=== PATIENT | female | born 1955 | race African-American/Black ===

== ENCOUNTER 2018-04-05 13:39 | Outpatient (CLI) | payer MEDICARE ==
[2018-04-05 15:48] LABS: #Eosinphils 0.2 thou/uL (0.0-0.7); #Lymphocytes 2.3 thou/uL (1.20-3.40); #Monocytes 0.5 thou/uL (0.11-0.59); #Neutrophils 5.1 thou/uL (1.40-6.50); %Basophils 0.6 % (0.0-1.0); %Eosinophils 2.1 % (0.0-10.0); %Lymphocytes 27.9 % (21.0-51.0); %Monocytes 6.7 % (0.0-10.0); %Neutrophils 62.7 % (42.0-75.0); Hemoglobin 12.1 g/dL (12.0-16.0); Mean Corpuscular HGB CONC 32.1 g/dL (32.0-36.0); Mean Corpuscular Hemoglobin 28.5 pg (27.0-31.0); Mean Corpuscular Volume 88.6 fL (78.0-98.0); Mean Platelet Volume 6.9 fL (7.4-10.4); Platelet Count 337 thou/uL (130-400); RBC Distribution Width 12.6 % (11.5-14.5); Red Blood Cell (RBC) Count 4.24 mill/uL (4.20-5.40); White Blood Cell (WBC) Count 8.1 thou/uL (4.8-10.8)
[2018-04-05 16:08] LABS: Anion Gap 16 mmol/L (10-20); BUN (Urea Nitrogen) 17 mg/dL (9.8-20.1); Calc. Creatinine Clearance 0 mL/min (70-130); Calcium 10.3 mg/dL (7.8-10.44); Carbon Dioxide 28 mmol/L (23-31); Chloride 100 mmol/L (98-107); Estimated GFR-MDRD 64; Glucose 98 mg/dL (80-115); Potassium 4.3 mmol/L (3.5-5.1); Sodium 140 mmol/L (136-145)
== END 2018-04-05 13:40 | disposition home or self-care (01) ==
LOC: LABBT 13:39
PROVIDERS: ATTEND Specialist
DX: Z01.818 Encounter for other preprocedural examination (principal); R92.8 Other abnormal and inconclusive findings on diagnostic imaging of breast
CPT/HCPCS: 80048; 85025; 93005; 93010

== ENCOUNTER 2018-04-28 12:27 | Outpatient (CLI) | payer MEDICARE ==
--- NOTE | 2018-04-28 15:42 | MRI ---
MRI OF THE BILATERAL BREASTS WITHOUT AND WITH CONTRAST: Comparison: Mammogram and ultrasound from [facility], 03-21-18. History: Abnormal mammogram and ultrasound performed at [facility], concerning for malignancy. Please evalu ate extent of disease. Technique: Multiplanar, multisequence MRI images were obtained of the bilateral breasts without and w ith IV contrast. Contrast enhanced reconstructions and 3D MIP reformats were generated on a [employer] orkstation. FINDINGS: Scattered fibroglandular breast tissue is present. Minimal background parenchymal enhancement is seen . There is a spiculated mass in the anterior inner right breast which is slightly subareolar in locatio n. This corresponds to the mammographic abnormality. This mass measures approximately 11 mm in size. Adjacent to this mass, there is non-mass like enhancement which extends from the nipple more posterio r within the breast. This area of non-mass like enhancement measures 7.8 x 5.5 x 4.6 cm in size. When compared to the mammograms, this non-mass like enhancement corresponds to area where the segmental c alcifications are seen on mammogram and likely represents DCIS. There is inversion of the left nipple and enhancement of the left nipple areolar complex. This is asymmetric when compared to the right. No abnormal enhancement is seen in the right breast. No spiculated mass is seen in the right breast. No axillary adenopathy is seen. No internal mamillary lymph nodes are identified. The visualized ante rior liver and osseous structures are unremarkable. IMPRESSION: 1. There is a spiculated mass in the left breast concerning for a breast cancer. There appears to be DCIS surrounding this mass, as mentioned above, involving the nipple areolar complex and is fairly ex tensive. The course runs through the area where the calcifications are seen in the left breast on juan mography. 2. BIRADS category 4 - official abnormality. A biopsy of the spiculated left breast mass is recommend ed. POS: OFF
== END 2018-04-28 12:28 | disposition home or self-care (01) ==
LOC: BICMRI 12:27
PROVIDERS: ATTEND Specialist
DX: R92.8 Other abnormal and inconclusive findings on diagnostic imaging of breast (principal); N63.20 Unspecified lump in the left breast, unspecified quadrant
CPT/HCPCS: C8908

== ENCOUNTER 2018-05-24 10:16 | Outpatient (CLI) | payer MEDICARE ==
[2018-05-24] MEDS ORDERED: Iopamidol 370 76% 100 ML VIAL ONE (11:19)
--- NOTE | 2018-05-24 13:03 | CT ---
CHEST AND ABDOMEN CT SCAN WITH IV CONTRAST: HISTORY: A 63-year-old female with a history of breast cancer, malignant neoplasm, upper inner quadrant, left female breast. FINDINGS: There are enumerable bone metastases involving the visualized bony skeleton. The most marked involve ment is the axial skeleton, including the thoracic and lumbar vertebrae, with large extensive lytic b one lesions, as well as the pelvis and sternum, with less marked areas of abnormality within the ribs , consistent with severe widespread bone metastasis. There is no evidence for pulmonary metastasis. There is no mediastinal mass or adenopathy. There are some oblique linear parenchymal changes in th e right lower lobe, posteriorly, probably representing some chronic change. No pleural effusion or p ericardial effusion. In the abdomen, there are extensive liver metastases, in the right and left lob es of the liver, up to 1.8 cm in diameter. No evidence for retroperitoneal adenopathy. The gallblad sim, pancreas, spleen, and adrenal glands are unremarkable. No evidence for renal calculus or acute obstruction. Severe small renal hypodensities, evidence for renal cysts. There is some scarring in the left breast. IMPRESSION: 1. Very extensive bone metastasis. 2. Extensive liver metastasis. 3. Other findings as above. POS: [facility]
--- NOTE | 2018-05-24 15:57 | NM ---
WHOLE BODY BONE SCAN: INDICATION: History of metastatic breast cancer. RADIOPHARMACEUTICAL: 32 mCi of Technetium 99m labeled MDP IV. FINDINGS: Whole body bone scan demonstrates multiple foci of abnormal radiotracer accumulation involving the ri bs, thoracolumbar spine, pelvis, and proximal right femur consistent with diffuse osseous metastatic disease. IMPRESSION: Diffuse osseous metastatic disease involving the spine, ribs, pelvis, and proximal right femur. Radi ographs of right femur recommended to evaluated extent of disease in this region. POS: [facility]
== END 2018-05-24 10:17 | disposition home or self-care (01) ==
LOC: CT 10:16
PROVIDERS: ATTEND Internal Medicine Hematology & Oncology
DX: Z01.818 Encounter for other preprocedural examination (principal); C50.212 Malignant neoplasm of upper-inner quadrant of left female breast; C78.7 Secondary malignant neoplasm of liver and intrahepatic bile duct; C79.51 Secondary malignant neoplasm of bone
CPT/HCPCS: 71260; 74160; 78306; 82565; A9503

== ENCOUNTER 2018-05-24 14:54 | Outpatient (CLI) | payer MEDICARE ==
[2018-05-24 16:28] LABS: #Basophils 0.1 thou/uL (0.0-0.2); #Eosinphils 0.1 thou/uL (0.0-0.7); #Lymphocytes 2.3 thou/uL (1.20-3.40); #Monocytes 0.8 thou/uL (0.11-0.59); #Neutrophils 3.9 thou/uL (1.40-6.50); %Basophils 1.3 % (0.0-1.0); %Eosinophils 1.9 % (0.0-10.0); %Lymphocytes 31.6 % (21.0-51.0); %Monocytes 10.9 % (0.0-10.0); %Neutrophils 54.3 % (42.0-75.0); Hemoglobin 12.1 g/dL (12.0-16.0); Mean Corpuscular HGB CONC 30.3 g/dL (32.0-36.0); Mean Corpuscular Hemoglobin 26.8 pg (27.0-31.0); Mean Corpuscular Volume 88.6 fL (78.0-98.0); Mean Platelet Volume 6.9 fL (7.4-10.4); Platelet Count 342 thou/uL (130-400); RBC Distribution Width 13.5 % (11.5-14.5); Red Blood Cell (RBC) Count 4.49 mill/uL (4.20-5.40); White Blood Cell (WBC) Count 7.3 thou/uL (4.8-10.8)
[2018-05-24 16:44] LABS: Anion Gap 12 mmol/L (10-20); BUN (Urea Nitrogen) 20 mg/dL (9.8-20.1); Calc. Creatinine Clearance 0 mL/min (70-130); Carbon Dioxide 30 mmol/L (23-31); Chloride 98 mmol/L (98-107); Estimated GFR-MDRD 70; Glucose 88 mg/dL (80-115); Potassium 3.7 mmol/L (3.5-5.1); Sodium 136 mmol/L (136-145)
[2018-05-24 16:54] LABS: Calcium 12.4 mg/dL (7.8-10.44)
== END 2018-05-24 14:55 | disposition home or self-care (01) ==
LOC: LABBT 14:54
PROVIDERS: ATTEND Specialist
DX: Z01.818 Encounter for other preprocedural examination (principal); C50.912 Malignant neoplasm of unspecified site of left female breast
CPT/HCPCS: 71260; 74160; 78306; 80048; 82565; 85025; 93005; A9503; 93010

== ENCOUNTER 2018-05-25 10:09 | Day surgery (SDC) | payer MEDICARE ==
[2018-05-24 14:46] VITALS: BMI 36.1
[2018-05-25] MEDS ORDERED: Ketorolac Tromethamine 30 MG/ML VIAL ONE (10:28)
[2018-05-25] MEDS ORDERED: CEFAZOLIN/Water 2 GM/20 ML SYRINGE ONE (10:28)
[2018-05-25] MEDS ORDERED: Fentanyl 100 MCG/2 ML VIAL ONE (11:46)
[2018-05-25] MEDS ORDERED: Midazolam HCl 2 mg/2 ml Vial ONE (11:46)
[2018-05-25] MEDS ORDERED: Ketamine 50 MG/ML VIAL ONE (11:46)
[2018-05-25] MEDS ORDERED: Propofol 500 MG/50 ML VIAL ONE (11:46)
[2018-05-25] MEDS ORDERED: Lidocaine 1% (PF) 30 ML VIAL ONE (12:03)
[2018-05-25] MEDS ORDERED: Bupivacaine/Epinephrine 0.25% 30 ML VIAL ONE (12:03)
--- NOTE | 2018-05-25 14:32 | RAD ---
PORTABLE UPRIGHT FRONTAL CHEST RADIOGRAPH: Date: 05-25-18 History: Evaluate chest following Mediport placement. FINDINGS: There is a right sided Port-a-cath via a right subclavian approach on the distal tip overlying the re gion of the cavoatrial junction. There is elevation of the right hemidiaphragm limiting assessment of the right lung base. There is no pneumothorax or pleural fluid and no focal consolidation or alveola r edema. There is multilevel degenerative change involving the thoracic spine with right lateral oste ophyte formation. IMPRESSION: Right sided Port-a-cath noted with no evidence for pneumothorax. POS: [facility]
--- NOTE | 2018-05-26 15:38 | OP ---
DATE OF OPERATION: 05/25/2018 PREOPERATIVE DIAGNOSIS: Metastatic breast cancer. POSTOPERATIVE DIAGNOSIS: Metastatic breast cancer. OPERATION PERFORMED: Placement of a right subclavian regular size, power-compatible MediPort. SURGEON: Alan Cervantes M.D. ANESTHESIA: Total intravenous anesthesia with local using 0.25% Marcaine with epinephrine. INDICATIONS: The patient is a 63-year-old black female. She is recently diagnosed with left breast cancer. Recent imaging studies seemed to indicate metastatic disease to her spine. She presents tod for MediPort placement for neoadjuvant chemotherapy administration. DESCRIPTION OF OPERATION: Informed consent was obtained. The patient was taken to the operating gisselle m where total intravenous anesthesia was obtained with the patient in supine position. Right pericla vicular area was prepped with ChloraPrep and draped in sterile fashion. Local anesthetic was infiltr ated and a large gauge needle was passed under the clavicle in the subclavian vein. Guidewire was pa ssed through the needle and fluoroscopically confirmed to enter the superior vena cava. Additional l ocal anesthetic was infiltrated and transverse incision was created based on needle insertion site. A subcutaneous pocket was dissected inferiorly. Introducer dilator was passed over the guidewire und er fluoroscopic guidance. The guidewire and dilator were removed, and the catheter was passed throug h the introducer. The tip of the catheter was positioned at the atriocaval junction and the catheter was trimmed to the appropriate length and secured to the locking hub of the MediPort. The port was then placed in the subcutaneous pocket where it was secured to the pectoral fascia with 2 interrupted sutures of 3-0 Prolene. The incision was then closed in layers with 3-0 and 4-0 Monocryl. Addition al local anesthetic was infiltrated. The port was cannulated with a Xavier needle and it aspirated bl ood freely and was flushed with heparinized saline. Dermabond was placed externally on the skin inci teri. There were no complications. Blood loss was negligible. The patient tolerated the procedure well and was taken to recovery room in stable condition. FINDINGS: The patient's anatomy was typical. A regular size port was placed uneventfully in the rig ht subclavian vein. There were no complications. Blood loss is negligible. A post-procedure chest x-ray documents good position of the port and catheter.
== END 2018-05-25 14:15 | disposition home or self-care (01) ==
LOC: SDC 10:09
PROVIDERS: ATTEND Specialist
PROC: 0JH63WZ Insertion of Totally Implantable Vascular Access Device into Chest Subcutaneous Tissue and Fascia, Percutaneous Approach (ICD-10-PCS; principal; 2018-05-25)
DX: C50.912 Malignant neoplasm of unspecified site of left female breast (principal); E11.9 Type 2 diabetes mellitus without complications; I10 Essential (primary) hypertension; M19.90 Unspecified osteoarthritis, unspecified site; Z17.0 Estrogen receptor positive status [ER+]; Z79.52 Long term (current) use of systemic steroids; Z79.899 Other long term (current) drug therapy
CPT/HCPCS: 36561; 71045; C1788; J0131; J1642; J1885; J2001; J2250; J2704; J3010

== ENCOUNTER 2018-05-26 12:02 | Outpatient (CLI) | payer MEDICARE ==
[~2018-05-26 12:02] MED LIST: Iopamidol 370 76% 100 ML VIAL ONE
--- NOTE | 2018-05-26 17:53 | CT ---
CT OF THE BRAIN WITHOUT AND WITH CONTRAST: 05/26/18 HISTORY: Breast cancer with osseous metastatic disease. COMPARISON: Bone scan 05/24/18. TECHNIQUE: Multiple contiguous axial images were obtained in a CT of the brain without and with contrast. FINDINGS: There is scattered abnormal foci of enhancement in the brain concerning for intracranial metastases. The largest is seen in the left basal ganglia measuring 11 mm in size. The second largest lesion is s een in the left frontal lobe near the falx measuring 8 mm in size. Other foci of abnormal enhancement are seen in the bilateral frontal lobe and the left parietal lobe. There is no evidence of hydrocephalus, intracranial hemorrhage, or extra-axial fluid collection. The calvarium and overlying soft tissues are unremarkable. The visualized paranasal sinuses and masto id air cells are well aerated. IMPRESSION: Multifocal abnormal areas of enhancement in the brain are likely secondary to intracranial metastatic disease. POS: [facility]
== END 2018-05-26 12:03 | disposition home or self-care (01) ==
LOC: ULT 12:02 → CT 12:03
PROVIDERS: ATTEND Internal Medicine Hematology & Oncology
DX: Z51.11 Encounter for antineoplastic chemotherapy (principal); C50.212 Malignant neoplasm of upper-inner quadrant of left female breast; C79.51 Secondary malignant neoplasm of bone; C78.7 Secondary malignant neoplasm of liver and intrahepatic bile duct; R90.89 Other abnormal findings on diagnostic imaging of central nervous system; I08.3 Combined rheumatic disorders of mitral, aortic and tricuspid valves; Z79.899 Other long term (current) drug therapy
CPT/HCPCS: 70470; 93306

== ENCOUNTER 2018-06-25 20:13 | Inpatient (IN) | payer MEDICARE ==
[~2018-06-25 20:13] MED LIST changes: +ISOVUE-370 76%-LOCM 1 ML ONE; -Iopamidol 370 76% 100 ML VIAL ONE
[2018-06-25] MEDS ORDERED: Acetaminophen 500 MG TAB ONE ×2 (20:50→21:17)
[2018-06-25] MEDS ORDERED: Cefepime 2 GM VIAL ONE (20:50)
--- NOTE | 2018-06-25 20:56 | RAD ---
CHEST ONE VIEW: Comparison: 05-25-18 History: Fever. Patient on chemotherapy. FINDINGS: Right sided metaport catheter, unchanged in position. Persistent elevation of the right hemidiaphragm . No consolidation or mass. No pneumothorax or osseous abnormality. IMPRESSION: No acute cardiopulmonary process. POS: [facility]
[2018-06-25 21:24] LABS: ALT (SGPT) 114 U/L (8-55); AST (SGOT) 212 U/L (5-34); Alkaline Phosphatase 450 U/L (40-150); Anion Gap 18 mmol/L (10-20); BUN (Urea Nitrogen) 34 mg/dL (9.8-20.1); Bilirubin, Total 1.9 mg/dL (0.2-1.2); CK (CPK) 249 U/L (29-168); Calc. Creatinine Clearance 0 mL/min (70-130); Calcium 8.6 mg/dL (7.8-10.44); Carbon Dioxide 23 mmol/L (23-31); Chloride 100 mmol/L (98-107); Estimated GFR-MDRD 53; Globulin 3.2 g/dL (2.4-3.5); Glucose 204 mg/dL (80-115); Lipase 30 U/L (8-78); Potassium 3.5 mmol/L (3.5-5.1); Protein, Total 6.2 g/dL (6.0-8.3); Sodium 137 mmol/L (136-145)
[2018-06-25 21:27] LABS: CKMB 0.4 ng/mL (0-6.6); Troponin I 0.037 ng/mL (< 0.028)
[2018-06-25 21:58] LABS: Anisocytosis SLIGHT = 6-15 cells (100X) (0-5/hpf); Band 1 % (5-11); Eosinophils 1 % (0-10); Hemoglobin 10.9 g/dL (12.0-16.0); Lymphocytes 79 % (21-51); MDiff Complete? YES; Mean Corpuscular HGB CONC 31.2 g/dL (32.0-36.0); Mean Corpuscular Hemoglobin 27.2 pg (27.0-31.0); Mean Corpuscular Volume 87.3 fL (78.0-98.0); Mean Platelet Volume 11.4 fL (7.4-10.4); Metamyelocyte 2 % (0-0); Monocytes 9 % (0-10); Myelocyte 2 % (0-0); Neutrophil 6 % (42-75); PLT Morphology Comment Appears Decreased; Platelet Count 104 thou/uL (130-400); RBC Distribution Width 16.8 % (11.5-14.5)
[2018-06-25] MEDS ORDERED: Ibuprofen 800 MG TAB ONE (22:42)
--- NOTE | 2018-06-25 23:08 | CT ---
CT ANGIOGRAM OF THE CHEST: Comparison: Chest CT 05-24-18 History: Metastatic breast cancer. Weakness. Technique: CT angiogram of the chest was performed in the axial plane. 3D reformatted images are subm itted for interpretation. FINDINGS: No mediastinal mass, lymphadenopathy, or hematoma. Heart size is within normal limits. No pericardial effusions. Visualized aorta is unremarkable. There is evidence of multifocal hepatic metastases. Extensive osseous metastases. Stable linear opacity in the superior segment of the right lower lobe compatible with scar. No consol idation or masses. No pleural effusion or pneumothorax. Small amount of secretions are suspected in t he proximal right central bronchus. Limited evaluation of the pulmonary arterial system to the level of lobar arteries due to timing of b olus. No evidence of PE to the level of the lobar arteries. IMPRESSION: 1. Extensive osseous and hepatic metastases. 2. Limited evaluation of the pulmonary arterial systems to the level of the lobar arteries. No fillin g defects to suggest thromboembolism. POS: [facility]
[2018-06-25 23:55] LABS: Troponin I 0.045 ng/mL (< 0.028)
[2018-06-26] MEDS ORDERED: Ondansetron PF 4 MG/2 ML Vial IVP PRN (00:44)
[2018-06-26 03:56] LABS: Hemoglobin 9.1 g/dL (12.0-16.0); Mean Corpuscular HGB CONC 30.9 g/dL (32.0-36.0); Mean Corpuscular Hemoglobin 26.9 pg (27.0-31.0); Mean Corpuscular Volume 86.9 fL (78.0-98.0); Mean Platelet Volume 11.4 fL (7.4-10.4); Platelet Count 97 thou/uL (130-400); RBC Distribution Width 16.7 % (11.5-14.5); White Blood Cell (WBC) Count 1.1 thou/uL (4.8-10.8)
[2018-06-26 03:56] LABS: Lactic Acid 2.7 mmol/L (0.5-2.2)
[2018-06-26 03:59] LABS: Anion Gap 14 mmol/L (10-20); BUN (Urea Nitrogen) 28 mg/dL (9.8-20.1); Calc. Creatinine Clearance 0 mL/min (70-130); Calcium 7.5 mg/dL (7.8-10.44); Carbon Dioxide 23 mmol/L (23-31); Chloride 107 mmol/L (98-107); Estimated GFR-MDRD 71; Glucose 181 mg/dL (80-115); Potassium 3.5 mmol/L (3.5-5.1); Sodium 140 mmol/L (136-145)
[2018-06-26 04:34] LABS: Anisocytosis SLIGHT = 6-15 cells (100X) (0-5/hpf); Band 1 % (5-11); Eosinophils 2 % (0-10); Lymphocytes 64 % (21-51); MDiff Complete? YES; Monocytes 22 % (0-10); Myelocyte 3 % (0-0); Neutrophil 7 % (42-75); PLT Morphology Comment Appears Decreased
[2018-06-26] MEDS ORDERED: Cefepime 2 GM VIAL ONE (04:43)
[2018-06-26] MEDS: Sodium Chloride 0.9% 1,000 ML IV SCH ×3 (08:01→20:43)
[2018-06-26] MEDS: Cefepime 2 GM in Sodium Chloride 0.9% 100 ML IVPB SCH ×3 (08:01→20:41)
[2018-06-26 08:57] LABS: Anion Gap 12 mmol/L (10-20); BUN (Urea Nitrogen) 27 mg/dL (9.8-20.1); Calc. Creatinine Clearance 0 mL/min (70-130); Calcium 7.4 mg/dL (7.8-10.44); Carbon Dioxide 24 mmol/L (23-31); Chloride 108 mmol/L (98-107); Estimated GFR-MDRD 79; Glucose 142 mg/dL (80-115); Potassium 3.3 mmol/L (3.5-5.1); Sodium 141 mmol/L (136-145)
--- NOTE | 2018-06-26 09:17 | HP ---
PRIMARY CARE PHYSICIAN: Kelvin Bay M.D. CODE STATUS: FULL CODE. TIME OF EVALUATION: 12:00 a.m. CHIEF COMPLAINT: Fever and generalized weakness. HISTORY OF PRESENT ILLNESS: This is a 63 years old female patient with past medical history of breast cancer with metastatic disease, who came to the hospital after having severe generalized weakness, the symptoms started since , associated with fever, no clear triggers, no alleviating factors, of note patient is receiving chemo, white count was 1.0, symptoms are severe. REVIEW OF SYSTEMS: Constitutional: The patient had fever, chills, generalized weakness. Respiratory: No cough, sputum production or shortness of breath. Cardiovascular: No chest pain or palpitations. Gastrointestinal: The patient has nausea, occasional vomiting. TELEPHONE LINEWORKER: No dizziness, headache or feeling lightheaded. Genitourinary: No burning with urination. Extremities: No leg swelling. All other systems were reviewed and negative except for the finding mentioned above. PAST MEDICAL HISTORY: The patient has a history of left breast cancer, hyperlipidemia, hypertension. FAMILY HISTORY: The patient denies any significant family history of mother or father. PSYCHIATRIC HISTORY: No previous psychiatric history. SOCIAL HISTORY: No alcohol, no drugs. No smoking history. Lives with family. KNOWN ALLERGIES: No known drug allergies. REPORTED MEDICATIONS: Hydrochlorothiazide, simvastatin, prochlorperazine, Namenda, cyclobenzaprine, nystatin, Zofran, Combigan, Lumigan. PHYSICAL EXAMINATION: VITAL SIGNS: On presentation, blood pressure 131/70, heart rate 125, respiratory rate was 32, temperature 100.5, oxygen saturation 95 on room air. PHYSICAL EXAMINATION: GENERAL APPEARANCE: The patient is alert, oriented, in mild distress due to symptoms. HEENT: Eyes, normal conjunctivae. Dry oral mucosa. Eyes, anicteric. NECK: No JVD. RESPIRATORY: Bilateral air entry. No rales, no wheezes. Symmetric expansion. CARDIOVASCULAR: The patient was tachycardic, normal rhythm. No murmurs, no gallop, no edema. ABDOMEN: Soft. Normal bowel sounds. MUSCULOSKELETAL: Baseline range of motion and strength. No tenderness. SKIN: Warm and intact. No pallor, no rash, no redness. Peripheral pulses are present. Capillary refill seems to be intact. NEUROLOGIC: No evidence of any new focal weakness. Baseline speech. Cranial nerves seem to be intact. PSYCHIATRIC: The patient is in good mood. No anxiety, oriented, optimal judgment. Chest x-ray was done. The patient has no acute cardiopulmonary process. CT angio of the chest was done. The patient has extensive ulcers and hepatic metastasis. Limited evaluation of the pulmonary arterial systems to the level of the lower arteries, no filling defect to suggest thromboembolism. LABORATORY DATA: The labs were reviewed. Her white count was 1.0, hemoglobin 10.9, MCV 87, platelet count 104. The patient has neutropenia. D-dimer 7.12. Chemistry: Sodium 137, potassium 3.5, chloride 100, carbon dioxide 23, anion gap of 18, BUN 34 on presentation with creatinine 1.23, this has improved after hydration. GFR 53; glucose 204; lactic acid 3.5, came down to 2.7 after initial treatment. Total bilirubin 1.9, AST 212, ALT 114, alkaline phosphatase 150. CK 249, troponin 0.045. Beta natriuretic peptide 33.4. Serum total protein 6.2, albumin 3.0, globulin 3.2, albumin-globulin ratio 0.9, lipase 30. ASSESSMENT AND PLAN: The patient will be placed in the hospital with the following medical problems. 1. Neutropenic fever, no evident source. The patient had chemotherapy recently. White count is 1.0. Neutrophils are very low. The patient has been started on broad-spectrum antibiotics. We will follow cultures, will adjust treatment as necessary . 2. Sepsis. The patient has neutropenia with fever and lactic acidosis. The patient has been started broad-spectrum antibiotics, hydration to keep , rest of treatment as above. 3. Metastatic breast cancer with metastasis to liver and the bone, Dr. Medina has been following this patient. We will consult Dr. Medina for help with her neutropenia for further recommendations. 4. Elevated D-dimer, likely secondary to cancer, no pulmonary embolism was found in the CT angiogram. 5. Normocytic anemia, likely secondary to chemotherapy, and due to cancer, we will defer to Hematology any further management. 6. Thrombocytopenia, likely secondary to chemo. Follow up with Hematology for further recommendations. 7. Dehydration with elevation of BUN and creatinine on presentation. Patient has received aggressive hydration for sepsis. Her creatinine has improved, it is in normal level now. 8. Lactic acidosis, secondary to underlying sepsis. Lactic acid has come down after initial approach. I will treat the underlying condition. 9. High LFTs, likely secondary to multiple metastases in the liver. We will monitor. Oncology following this problem. 10. Mild elevation in troponin. This is likely secondary to [id number] myocardial infarction, type 2. We will trend troponins and we will treat accordingly. 11. Deep venous thrombosis prophylaxis. MTDD
[2018-06-26] MEDS ORDERED: Enoxaparin Sodium 40 MG/0.4 ML SYRINGE ONE (10:05)
[2018-06-26 11:46] LABS: Bilirubin Small (Negative); Blood, Urine Large (Negative); Clarity CLOUDY (Clear); Glucose, Urine (Dipstick) Negative (Negative); Leukocyte Negative (Negative); Nitrite Negative (Negative); Protein, Urine (Dipstick) 100 mg/dL (Neg-Trace); Urobilinogen 0.2 mg/dL (0.2-1.0)
[2018-06-26 11:48] LABS: Squamous Epithelial 21-50 HPF (0-3)
[2018-06-26 11:53] LABS: Pathc Cast-AUWi Flag 4.07 (0-2.49); Yeast-AUWi Flag 91.8 (0-25.0)
[2018-06-26 12:06] LABS: Bacteria/HPF 1+ HPF (None Seen); Hyaline Casts/LPF 0-3 HYALINE CAST LPF (0-3 Hyaline); Manual Microscopic Reviewed? No Path Casts Seen; Other Casts/LPF 0-3 FINELY GRAN LPF (0-3 Hyaline); Renal Epithelial 0-3 HPF (0-3); Transitional Epithelial NONE SEEN HPF (0-3); Yeast-All Forms 1+ HPF (None Seen)
[2018-06-26 13:48] LABS: Hemoglobin 8.9 g/dL (12.0-16.0); Mean Corpuscular HGB CONC 30.3 g/dL (32.0-36.0); Mean Corpuscular Hemoglobin 26.3 pg (27.0-31.0); Mean Platelet Volume 10.4 fL (7.4-10.4); Platelet Count 98 thou/uL (130-400); RBC Distribution Width 16.7 % (11.5-14.5); Red Blood Cell (RBC) Count 3.39 mill/uL (4.20-5.40)
[2018-06-26 14:11] LABS: ALT (SGPT) 85 U/L (8-55); AST (SGOT) 141 U/L (5-34); Albumin 2.4 g/dL (3.4-4.8); Alkaline Phosphatase 332 U/L (40-150); Anion Gap 10 mmol/L (10-20); BUN (Urea Nitrogen) 23 mg/dL (9.8-20.1); Bilirubin, Total 1.1 mg/dL (0.2-1.2); Calc. Creatinine Clearance 0 mL/min (70-130); Calcium 7.6 mg/dL (7.8-10.44); Carbon Dioxide 25 mmol/L (23-31); Chloride 109 mmol/L (98-107); Estimated GFR-MDRD 87; Globulin 3.1 g/dL (2.4-3.5); Glucose 158 mg/dL (80-115); Potassium 3.2 mmol/L (3.5-5.1); Protein, Total 5.5 g/dL (6.0-8.3); Sodium 141 mmol/L (136-145)
--- NOTE | 2018-06-26 14:27 | CON ---
DATE OF CONSULTATION: 06/26/2018 DATE OF ADMISSION: 06/25/2018 HISTORY OF PRESENT ILLNESS: Ms. Tomas is a 63-year-old female with a history of metastatic ER posi tive, HER2 positive invasive ductal carcinoma. She was diagnosed within the last 6 weeks. On diagno sis, she was found to have brain and liver metastases as well as bone metastases. She was treated wi th whole-brain radiation, completed one week prior to . Four days later, she was brought in to start palliative chemotherapy and treatment with Taxotere, Perjeta, Herceptin. She was noted to have some mild elevation in her liver function tests last week, on the day of treatment. This was discussed with her family and the patient ultimately decided to get started with treatment. She rec eived a dose reduced Taxotere, plus Perjeta and Herceptin 5 days prior to this admission. After chem otherapy, she did get weaker. She had been week prior to starting the chemotherapy. She had lost 20 pounds on the radiation. She had some back pain, which has improved. For 3-4 days after chemothera py, she did have some diarrhea, although on the day that I discussed this with her, she thinks maybe it is improving. She did not notice any fever at home, but she did have fever when she came to the e mergency room. Her children brought her to the emergency room, because she had gotten progressively weaker and more fatigued. She was not eating or drinking very much and was noted to have pain in her mouth with sores, probably thrush. Because she could not swallow well and was having diarrhea, she was brought in. She was notably slightly hypotensive, although certainly this has improved. PAST MEDICAL HISTORY: 1. Recent diagnosis of metastatic breast cancer. 2. Hypertension. 3. Hyperlipidemia. CURRENT MEDICATIONS: 1. Tylenol p.r.n. 2. Cefepime 2 grams IV q.8 hours. 3. Lovenox 40 mg subcu daily. 4. Zofran 4 mg IV q.6 hours p.r.n. 5. Vancomycin 1 gram given on admission. ALLERGIES: No known drug allergies. SOCIAL HISTORY: She lives in town, and has a , who is quite supportive. Her daughter and son also are quite supportive. She denies tobacco or alcohol use. FAMILY HISTORY: Negative for malignancy and noncontributory. REVIEW OF SYSTEMS: Otherwise, 10-point review of systems is negative. Please see the history of pre sent illness. PHYSICAL EXAMINATION: VITAL SIGNS: Temperature 96.8, respirations 20, O2 saturation 97% on room air, blood pressure 121/68 , pulse 99. GENERAL: She is somewhat chronically ill-appearing, but in no acute distress and is able to give a g ood history. HEENT: Extraocular muscles are intact. Pupils equal, round, and reactive to light. She has no oral cavity lesions, sclerae are anicteric. Mouth, she does have white patches consistent with thrush. NECK: Supple, without lymphadenopathy. CARDIOVASCULAR: Regular rhythm, somewhat tachycardic, but in the 80s on my exam. LUNGS: Clear to auscultation. ABDOMEN: Hypoactive bowel sounds, obese, nontender, nondistended, no ascites noted. EXTREMITIES: No edema, clubbing, or cyanosis. LABORATORY DATA: White blood cell count 1.1, hemoglobin 9.1, platelets 97,000 with 7% neutrophils, 2 2% monocytes, 1% bands, 64% lymphocytes. Lactic acid 3.5. Sodium 137, potassium 3.5, chloride 100, CO2 of 23, BUN 34, creatinine 1.2, glucose 204, total bilirubin 1.9, this is slightly decreased from last week. AST 212, ALT 114, alkaline phosphatase 450, creatine kinase 249, albumin 3.0, total prote in 6.2, globulin 3.2, lipase 30. CT angiogram done on admission shows multiple hepatic metastases as well as osteo metastases. There is limited evaluation of the pulmonary arterial system, but no filling defects to suggest thromboembo lism. ASSESSMENT: Ms. Tomas is a 63-year-old female with: 1. Metastatic ER positive, HER2 positive invasive ductal carcinoma. 2. Liver and bone metastases contributing to liver function tests abnormalities. 3. Weakness and dehydration. 4. Diarrhea, secondary to chemotherapy, Herceptin and Perjeta. 5. Fever on admission, although currently she is afebrile. 6. Pancytopenia, secondary to chemotherapy and bone metastases. PLAN: 1. She is already on cefepime, we will continue vancomycin until her blood counts recover. 2. Follow liver function tests closely and avoid liver toxic agents. 3. I think the diarrhea has somewhat improved and certainly is related to treatment. Imodium p.r.n. , unless she shows signs of infection that is associated with the diarrhea. 4. IV fluids and hydration. 5. Hold blood pressure medications for now. 6. We will follow with you.
[2018-06-26 14:30] LABS: Anisocytosis SLIGHT = 6-15 cells (100X) (0-5/hpf); Band 10 % (5-11); Elliptocytes SLIGHT = 2-5 cells (100X) (0-1/hpf); Hypochromia SLIGHT = 6-15 cells (100X) (0-5/hpf); Lymphocytes 68 % (21-51); MDiff Complete? YES; Metamyelocyte 3 % (0-0); Monocytes 6 % (0-10); Myelocyte 1 % (0-0); Neutrophil 8 % (42-75); PLT Morphology Comment Appears Decreased; Poikilocytosis SLIGHT = 6-15 cells (100X) (0-5/hpf); Reactive Lymphocytes 4 % (0-10); Tear Drops SLIGHT = 2-5 cells (100X) (0-1/hpf)
[2018-06-26] MEDS: Enoxaparin Sodium 40 MG/0.4 ML SYRINGE SC SCH (14:45)
[2018-06-26] MEDS: Nystatin 500,000 UNITS/5 ML UDCUP SSW SCH ×2 (16:01→20:41)
[2018-06-27] MEDS: Sodium Chloride 0.9% 1,000 ML IV SCH ×2 (05:28→18:09)
[2018-06-27] MEDS: Cefepime 2 GM in Sodium Chloride 0.9% 100 ML IVPB SCH ×3 (05:29→21:39)
[2018-06-27 06:34] LABS: ALT (SGPT) 69 U/L (8-55); AST (SGOT) 120 U/L (5-34); Albumin 2.3 g/dL (3.4-4.8); Alkaline Phosphatase 298 U/L (40-150); Anion Gap 11 mmol/L (10-20); BUN (Urea Nitrogen) 16 mg/dL (9.8-20.1); Bilirubin, Total 0.9 mg/dL (0.2-1.2); Calc. Creatinine Clearance 125 mL/min (70-130); Calcium 7.3 mg/dL (7.8-10.44); Carbon Dioxide 21 mmol/L (23-31); Chloride 111 mmol/L (98-107); Estimated GFR-MDRD Greater than 90; Globulin 2.8 g/dL (2.4-3.5); Glucose 110 mg/dL (80-115); Potassium 3.3 mmol/L (3.5-5.1); Protein, Total 5.1 g/dL (6.0-8.3); Sodium 140 mmol/L (136-145)
[2018-06-27 06:46] LABS: Hemoglobin 8.3 g/dL (12.0-16.0); Mean Corpuscular HGB CONC 30.2 g/dL (32.0-36.0); Mean Corpuscular Hemoglobin 26.7 pg (27.0-31.0); Mean Corpuscular Volume 88.3 fL (78.0-98.0); Mean Platelet Volume 11.4 fL (7.4-10.4); Platelet Count 110 thou/uL (130-400); RBC Distribution Width 16.8 % (11.5-14.5); Red Blood Cell (RBC) Count 3.12 mill/uL (4.20-5.40); White Blood Cell (WBC) Count 5.3 thou/uL (4.8-10.8)
[2018-06-27 06:47] LABS: Band 28 % (5-11); Lymphocytes 26 % (21-51); MDiff Complete? YES; Metamyelocyte 5 % (0-0); Monocytes 10 % (0-10); Myelocyte 4 % (0-0); Neutrophil 27 % (42-75); Nucleated RBC 2 % (0); PLT Morphology Comment Appears Decreased; Schistocytes SLIGHT = 2-5 cells (100X) (0-1/hpf); Tear Drops SLIGHT = 2-5 cells (100X) (0-1/hpf); Toxic Granulation SLIGHT
[2018-06-27] MEDS ORDERED: Ondansetron ODT 8 MG TAB PO PRN (07:33)
[2018-06-27] MEDS ORDERED: Cyclobenzaprine 10 MG TAB PO PRN (07:33)
[2018-06-27] MEDS ORDERED: Acetaminophen/Codeine 30-300mg Tablet PO PRN (07:33)
[2018-06-27] MEDS ORDERED: Aluminum & Magnesium Hydroxide 60 ML, diphenhydrAMINE 150 MG, Lidocaine 2% Viscous Solu... SSW PRN (08:21)
[2018-06-27] MEDS ORDERED: NYSTATIN PO SCH (09:00)
[2018-06-27] MEDS: Timolol 0.5% Ophth Soln 5 ml Bottle EA EYE SCH ×2 (09:47→21:40)
[2018-06-27] MEDS: Nystatin 500,000 UNITS/5 ML UDCUP PO SCH ×4 (09:48→21:40)
[2018-06-27] MEDS: Nystatin 500,000 UNITS/5 ML UDCUP SSW SCH (09:48)
[2018-06-27] MEDS: Enoxaparin Sodium 40 MG/0.4 ML SYRINGE SC SCH (09:49)
[2018-06-27] MEDS: Brimonidine Tartrate 0.2% Ophth Soln 5 ml Bottle EA EYE SCH ×2 (09:49→21:40)
--- NOTE | 2018-06-27 12:00 | PDOC.PN ---
- Subjective Encounter Start Date: 06/27/18 Encounter Start Time: 08:50 -: old records requested/rev Pt seen and examined, chart reviewed in its entirety. follow up for neutropenic fever. Pt afebrile feeling better, no chills or rigors, no N/V/D/C discussed case with Dr Medina. tolerating abx, no odynophagia. ANC up to 3500 today all systems reviewed and neg x as above - Objective Resuscitation Status: 06/27/18 11:21 Resuscitation Status Routine Resuscitation Status: FULL: Full Resuscitation MAR Reviewed: Yes Vital Signs & Weight: Vital Signs (12 hours) Temp Pulse Resp BP Pulse Ox 06/27/18 11:06 96 06/27/18 10:49 98.7 F 92 18 126/59 L 96 06/27/18 09:47 104 H 06/27/18 08:00 98.3 F 104 H 16 115/58 L 98 06/27/18 04:00 99.1 F 108 H 22 H 113/54 L 96 Weight Weight 231 lb I&O: 06/26/18 06/27/18 06/28/18 06:59 06:59 06:59 Intake Total 1680 Balance 1680 Result Diagrams: 06/27/18 05:45 06/27/18 05:45 Phys Exam - Physical Examination Constitutional: NAD HEENT: PERRLA, moist MMs, sclera anicteric, TM's clear mild thrush Neck: no nodes, no JVD, supple, full ROM Respiratory: no wheezing, no rales, no rhonchi, clear to auscultation bilateral Cardiovascular: RRR, no significant murmur, no rub Gastrointestinal: soft, non-tender, no distention, positive bowel sounds Musculoskeletal: pulses present, edema present Neurological: non-focal, normal sensation, moves all 4 limbs Lymphatic: no nodes Psychiatric: normal affect, A&O x 3 Skin: no rash, normal turgor, cap refill <2 seconds Dx/Plan (1) Neutropenia Code(s): D70.9 - NEUTROPENIA, UNSPECIFIED Status: Resolved Qualifiers: Neutropenia type: secondary to cancer chemotherapy Qualified Code(s): D70.1 - Agranulocytosis secondary to cancer chemotherapy; T45.1X5A - Adverse effect of antineoplastic and immunosuppressive drugs, initial encounter (2) Neutropenic fever Code(s): D70.9 - NEUTROPENIA, UNSPECIFIED; R50.81 - FEVER PRESENTING WITH CONDITIONS CLASSIFIED ELSEWHERE Status: Resolved Comment: none since admit, possibly related to marrow recovery. Continue Cefepime alone, followup cultures (3) Breast CA Status: Acute - Plan cont current plan of care, plan discussed w/ family, continue antibiotics, out of bed/ambulate * .
[2018-06-27 13:14] VITALS: BMI 36.1
[2018-06-27] MEDS: Acetaminophen 325 MG TAB PO PRN (16:06)
[2018-06-27] MEDS: Diphenoxylate HCl/Atropine Tablet PO PRN (16:18)
[2018-06-27] MEDS ORDERED: Latanoprost 0.005% Ophth Soln 2.5 ml Bottle EA EYE SCH (21:00)
[2018-06-27] MEDS ORDERED: Non-Formulary Item 1 EACH (Bimatoprost [Lumigan 0.01% Ophth Soln] 1 DROP) EA EYE SCH (21:00)
[2018-06-28] MEDS: Diphenoxylate HCl/Atropine Tablet PO PRN ×2 (01:02→06:35)
[2018-06-28] MEDS: Sodium Chloride 0.9% 1,000 ML IV SCH ×2 (04:42→15:45)
[2018-06-28] MEDS: Cefepime 2 GM in Sodium Chloride 0.9% 100 ML IVPB SCH ×2 (04:47→15:10)
[2018-06-28 07:02] LABS: Anion Gap 13 mmol/L (10-20); BUN (Urea Nitrogen) 13 mg/dL (9.8-20.1); Calc. Creatinine Clearance 141 mL/min (70-130); Calcium 7.5 mg/dL (7.8-10.44); Carbon Dioxide 20 mmol/L (23-31); Chloride 112 mmol/L (98-107); Estimated GFR-MDRD Greater than 90; Glucose 107 mg/dL (80-115); Magnesium 1.6 mg/dL (1.6-2.6); Potassium 3.3 mmol/L (3.5-5.1); Sodium 142 mmol/L (136-145)
[2018-06-28 07:34] LABS: Hemoglobin 8.6 g/dL (12.0-16.0); Mean Corpuscular HGB CONC 31.1 g/dL (32.0-36.0); Mean Corpuscular Hemoglobin 27.2 pg (27.0-31.0); Mean Corpuscular Volume 87.7 fL (78.0-98.0); Mean Platelet Volume 11.2 fL (7.4-10.4); Platelet Count 106 thou/uL (130-400); RBC Distribution Width 16.8 % (11.5-14.5); Red Blood Cell (RBC) Count 3.14 mill/uL (4.20-5.40); White Blood Cell (WBC) Count 14.5 thou/uL (4.8-10.8)
[2018-06-28 08:35] LABS: Band 37 % (5-11); Bite Cells SLIGHT = 2-5 cells (100X) (0-1/hpf); Dohle Bodies SLIGHT; Lymphocytes 14 % (21-51); MDiff Complete? YES; Metamyelocyte 4 % (0-0); Monocytes 10 % (0-10); Myelocyte 5 % (0-0); Neutrophil 29 % (42-75); Nucleated RBC 2 % (0); PLT Morphology Comment Appears Decreased; Polychromasia SLIGHT = 2-3 cells (100X) (0-2/hpf); Reflex for Review?? NO; Schistocytes SLIGHT = 2-5 cells (100X) (0-1/hpf); Toxic Granulation MODERATE
[2018-06-28] MEDS: Nystatin 500,000 UNITS/5 ML UDCUP PO SCH ×2 (09:14→13:04)
[2018-06-28] MEDS: Potassium Chloride 20 MEQ TAB PO SCH ×2 (09:14→09:38)
[2018-06-28] MEDS: Brimonidine Tartrate 0.2% Ophth Soln 5 ml Bottle EA EYE SCH (09:14)
[2018-06-28] MEDS: Timolol 0.5% Ophth Soln 5 ml Bottle EA EYE SCH (09:15)
[2018-06-28] MEDS: Enoxaparin Sodium 40 MG/0.4 ML SYRINGE SC SCH (09:38)
--- NOTE | 2018-06-28 10:01 | DIS ---
DATE OF ADMISSION: 06/25/2018 DATE OF DISCHARGE: 06/28/2018 PRIMARY CARE PHYSICIAN: Kelvin Bay MD. PRIMARY ONCOLOGIST: Bettina Medina MD DISCHARGE DIAGNOSES: 1. Neutropenia. 2. Chemotherapy induced diarrhea. 3. Possible neutropenic fever. 4. Oropharyngeal candidiasis. 5. History of breast cancer with metastasis. CONSULTATIONS: Oncology, Dr. Medina. PROCEDURES: None. HISTORY AND PHYSICAL: Ms. Tomas is a pleasant 63-year-old female, on multidrug therapy for metastatic breast cancer. Her last dose was days before she got admitted. She developed diarrhea and felt fevers at home. She presented to the emergency department for evaluation on 06/26/2018 and was found to have an absolute neutrophil count around 110. She was subsequently admitted for possible neutropenic fever and we were called to do the admission. 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 The patient was started on vancomycin and Zosyn initially. Liver functions were elevated likely secondary to chemotherapy, so she was placed on nystatin for her thrush in lieu of an Azole. Overnight, 06/26/2018 to 06/27/2018, ANC increased from 110 to 440. She had no fever and was transitioned to . Oncology saw the patient and followed along. She was transferred from the floor to telemetry due to SVT, which seemed to be related to motion. Overnight, 06/27/2018 to 06/28/2018, her heart rate normalized in the low 100s. She had no further episodes of SVT. White blood cell count was up to 14,500 with an ANC around 10,000 plus. She was stable for discharge with outpatient followup. PHYSICAL EXAMINATION: The patient was seen and examined on the day of discharge. Discharge plan and disposition were discussed with the patient and her face to face at the bedside. DISCHARGE MEDICATIONS: New medications, none. Home medications to continue: 1. Zocor 40 mg p.o. at bedtime. 2. Compazine 10 mg p.o. q.4 hours p.r.n. nausea. 3. Nystatin 5 mL swish and swallow q.i.d. 4. Ibuprofen p.r.n. 5. Hydrochlorothiazide 25 mg p.o. b.i.d. 6. Dexamethasone 4 mg 24 hours prior to chemo. 7. Brimonidine tartrate/timolol 0.2%/0.5% one drop in each eye b.i.d. 8. Zofran 8 mg ODT p.o. q.8 hours p.r.n. nausea. 9. Namenda 10 mg p.o. q.a.m. 10. Flexeril 10 mg p.o. p.r.n. muscle spasm. 11. Bimatoprost 0.01% one drop in each eye at bedtime. 12. Tylenol No. 3 p.r.n. FOLLOWUP APPOINTMENTS: 1. Primary care physician in [address] Medina . DISCHARGE CONDITION: Stable. DISPOSITION: Discharged home via private vehicle. DISCHARGE ACTIVITY: Per cardiopulmonary limits. DISCHARGE DIET: No restrictions. Job ID: [id number]
[2018-06-28] MEDS: Potassium Chloride 20 MEQ in Premix Bag 1 BAG IVPB SCH ×2 (10:36→13:04)
[2018-06-28 12:40] VITALS: BP 111/59; TEMP 98.3
[2018-06-28] MEDS: Acetaminophen 325 MG TAB PO PRN (13:04)
--- NOTE | 2018-07-01 20:20 | EKG ---
Test Reason : Blood Pressure : / mmHG Vent. Rate : 122 BPM Atrial Rate : 122 BPM P-R Int : 160 ms QRS Dur : 062 ms QT Int : 334 ms P-R-T Axes : 040 002 023 degrees QTc Int : 475 ms Sinus tachycardia Possible Left atrial enlargement Anterolateral infarct , age undetermined Abnormal ECG Confirmed by BOO REEVES, KERON ([id number]), photo editor REYNALDO TAO ([id number]) on 07/01/2018 8:19:52 PM Referred By: Confirmed By:KERON HADDAD MD
== END 2018-06-28 16:43 | disposition home or self-care (01) | DRG 871 ==
LOC: ERS 20:13 → ERHOLD 22:23 → 2NO 06-26 13:44 → ONC 06-27 10:32
PROVIDERS: ADMIT Hospitalist; ATTEND Hospitalist
DX: A41.9 Sepsis, unspecified organism (principal); D61.810 Antineoplastic chemotherapy induced pancytopenia; B37.0 Candidal stomatitis; E87.2 Acidosis; C79.51 Secondary malignant neoplasm of bone; C78.7 Secondary malignant neoplasm of liver and intrahepatic bile duct; C79.31 Secondary malignant neoplasm of brain; D70.9 Neutropenia, unspecified; R50.81 Fever presenting with conditions classified elsewhere; C50.919 Malignant neoplasm of unspecified site of unspecified female breast; E78.5 Hyperlipidemia, unspecified; I10 Essential (primary) hypertension; E86.0 Dehydration; D63.0 Anemia in neoplastic disease; D69.6 Thrombocytopenia, unspecified; Z17.0 Estrogen receptor positive status [ER+]
CPT/HCPCS: 36415; 51701; 71045; 71275; 80048; 80053; 81003; 81015; 82550; 82553; 83605; 83630; 83690; 83735; 83880; 84484; 85025; 85379; 87040; 87045; 87046; 87324; 87449; 87804; 87899; 93005; 94760; 96361; 96365; 96366; 96367; A4353; G8996-GN-CJ; G8997-GN-CJ; J0692; J1642; J1650; J3370; J3480; J7050

== ENCOUNTER 2018-09-07 08:59 | Outpatient (CLI) | payer MEDICARE ==
[2018-09-07] MEDS ORDERED: ISOVUE-370 76%-LOCM 1 ML ONE (10:30)
--- NOTE | 2018-09-07 13:39 | ULT ---
LEFT BREAST ULTRASOUND: Comparison: MRI 04-28-18, Left breast ultrasound, 03-21-18. History: Left breast cancer, and DCIS. Patient is on chemotherapy. The patient's disease is diffuse t hroughout the breast and she has metastatic disease. The patient's spiculated mass is at the 9:30 pos ition of the left breast. Technique: Multiplanar grayscale and color doppler images were obtained in a targeted ultrasound of t he left breast. FINDINGS: No suspicious area of shadowing or suspicious mass is seen at the 9:30 position of the left breast. N o cyst is identified. The patient's prior mammograms and MRI were reviewed and discussed with Dr. Medina as the mass was n ot visualized to perform a mammogram to evaluate for the extent of the patient's disease after chemot herapy. Therefore, a mammogram was ordered. IMPRESSION: Nonvisualization of left breast mass with ultrasound. BIRADS category 6 - known malignancy. Appropri ate action should be taken. POS: [facility]
--- NOTE | 2018-09-07 14:02 | CT ---
CT BRAIN WITH AND WITHOUT CONTRAST: DATE: 09/07/2018. HISTORY: A 63-year-old female with brain cancer metastatic to the brain. Status post chemotherapy and brain r adiation therapy. Followup. COMPARISON: 05/26/2018. TECHNIQUE: Precontrast scan of brain IV injection iodinated contrast media. Postcontrast scan of brain FINDINGS: The previously demonstrated enhancing nodule in the left basal ganglia, occupying the anterior limb o f left internal capsule, genu of internal capsule, and globus pallidus, enhances significantly less i ntensely than before. It was previously approximately 1.1 x 1 cm. It is currently 0.9 x 0.8 cm. Previously, there was a tiny, approximately 0.4 cm left parietal enhancing metastasis at the hagan-whi te junction. This currently measures 0.2 cm. The left upper parafalcine 0.8 x 0.5 cm enhancing metastasis is currently 0.4 x 0.3 cm. In the upper portion of the brain at the right superior frontal gyrus, there was a faint, approximate ly 0.4 cm mildly enhancing metastatic nodule, which is no longer visible. More anteriorly and inferiorly in the right paramedian frontal lobe, there was an approximately 0.7 x 0.5 cm strongly enhancing nodule. This is no longer visible. No enhancing nodules are visualized in the posterior fossa. No new enhancing nodules are visualized. Ventricles are normal in size and configuration. No acute intraaxial or extraaxial hemorrhage, mas s effect, midline shift, or extraaxial fluid collection. No destructive osseous calvarial lesion. IMPRESSION: Interval improvement in the several small brain metastases. VIANNEY Yao POS: [facility]
--- NOTE | 2018-09-07 14:29 | CT ---
CT CHEST WITH CONTRAST CT ABDOMEN WITH CONTRAST: Date: 09/07/18 HISTORY: C50.212 breast cancer. C20.9 liver mets. C79.51 bone mets. COMPARISON: CT of the chest dated 06/25/18 and chest and abdomen dated 05/24/18. FINDINGS: There has been chronic scar in the right lower lobe, similar to the comparison examinations. No new s uspicious pulmonary nodule. No pneumothorax or effusion. Chronic elevation right hemidiaphragm. Mild atelectasis within the right middle lobe. Central venous catheter tip is in good position. No axillary adenopathy is appreciated. No mediastinal adenopathy. No internal mammary adenopathy. Aortic contour is normal. Thyroid is unremarkable. Index lesion on prior examination measured 1.3 cm in size in the right lobe of the liver, hepatic segment VII now measures approximately 1.5 cm in size . There are innumerable small metastatic foci throughout the liver which have increased in number fro m the comparison examination. Index lesion hepatic segment V previously measured 1.6 cm, similar in s ize, still measuring 1.6 cm. The two index lesions are the largest and hypodense, likely due to centr al necrosis. Spleen unremarkable. Pancreas unremarkable. Adrenal glands unremarkable. There is a small hypodensity intrapolar left kidney suggestive of a cyst. The entire visualized thoracic and lumbar vertebra are involved with osteolytic and osteoblastic meta static disease. Some of the osteolytic metastatic foci have demonstrated areas of healing. There is a healing pathologic fracture of the T10 vertebra superior end plate. No acute displaced rib fracture. IMPRESSION: 1. Interval increase in number of the very small micrometastatic foci throughout the liver. 2. There is increased sclerosis and healing of the diffuse osseous metastatic disease with healing t horacic fractures described. There are no areas at risk for pathologic fracture appreciated. 3. No new suspicious pulmonary nodule. 4. The index lesions are similar of the liver, although are hypodense and likely due to central necr osis. POS: [facility]
== END 2018-09-07 09:00 | disposition home or self-care (01) ==
LOC: BICCT 08:59
PROVIDERS: ATTEND Internal Medicine Hematology & Oncology
DX: C79.51 Secondary malignant neoplasm of bone (principal); C78.7 Secondary malignant neoplasm of liver and intrahepatic bile duct; C50.212 Malignant neoplasm of upper-inner quadrant of left female breast; E83.52 Hypercalcemia; C79.31 Secondary malignant neoplasm of brain; S22.009D Unspecified fracture of unspecified thoracic vertebra, subsequent encounter for fracture with routine healing
CPT/HCPCS: 70470; 71260; 74160; 76642; 77065; G0279; Q9966

== ENCOUNTER 2018-11-14 12:42 | Outpatient (CLI) | payer MEDICARE ==
--- NOTE | 2018-11-14 16:21 | PET ---
EXAM: PET/CT HISTORY: 63-year-old female with breast cancer and bone metastases. Status post chemoradiation therapy. Exam r equested for restaging TECHNIQUE: PET scanning with CT attenuation correction was performed from the base of the brain to the proximal thighs following the intravenous administration of 13 millicuries [id number]. COMPARISON: None. CORRELATION: CT chest of 09/07/2018 and bone scan of 05/24/2018 FINDINGS: No eddie hypermetabolism is seen in the neck, chest, axillae, abdomen or pelvis. No hypermetabolic pulmonary nodules, liver or adrenal lesions are seen. Multiple foci of increased FDG localization is seen in the skeleton including the spine, ribs and rig ht proximal femur. The maximum SUV is in the right proximal femur with an SUV of 7.6. There is physiologic activity in the GI and tracts and the visualized portions of the brain. There are nonspecific foci of increased FDG localization in the subcutaneous fat of the right axilla with an SUV of 7.9, right upper back with an SUV of 5.2 in the right lower quadrant with an SUV of 4.7. The CT scan used for attenuation correction demonstrates no evidence of pericardial effusion or ascit es. There are small bilateral pleural effusions. Calcified uterine fibroids are present. IMPRESSION: 1. Osseous metastatic disease. 2. Nonspecific foci of increased FDG localization in the subcutaneous fat of the right axilla, right upper back and right lower quadrant. Clinical correlation is recommended
== END 2018-11-14 12:43 | disposition home or self-care (01) ==
LOC: PET 12:42
PROVIDERS: ATTEND Internal Medicine Hematology & Oncology
DX: Z51.11 Encounter for antineoplastic chemotherapy (principal); C79.51 Secondary malignant neoplasm of bone; C50.212 Malignant neoplasm of upper-inner quadrant of left female breast; E83.52 Hypercalcemia; I08.1 Rheumatic disorders of both mitral and tricuspid valves; Z79.899 Other long term (current) drug therapy
CPT/HCPCS: 78815; 93306; A9552

== ENCOUNTER 2018-12-06 10:57 | Outpatient (CLI) | payer MEDICARE ==
--- NOTE | 2018-12-06 14:10 | MRI ---
MRI BRAIN WITH AND WITHOUT CONTRAST: 12/06/2018 COMPARISON: CT brain from 09/07/2018. FINDINGS: Multiplanar, multisequence pre and post contrast enhanced MR images of the brain demonstrate fluid se en in the right mastoid air cells. Minimal left maxillary and ethmoid sinus mucosal thickening is seen. There is a small right frontal skull-based area of enhancement, concerning for skull metastatic disea se. The brain demonstrates no significant evidence of midline shift. The previously noted left basal tran glion area of enhancement is again seen. This area certainly has not increased in size. The area of enhancement has slightly decreased, compared to the previous CT from September 2018. No evidence of surrounding vasogenic edema is seen. A tiny area of focal enhancement is seen in the left posterior temporal lobe and in the left posterio r frontal lobe. These areas have not significantly changed since the previous comparison CT. No evidence of abnormal areas of T2 signal seen to suggest vasogenic edema. No evidence of newly dev eloped masses or lesions seen. IMPRESSION: Area of abnormal enhancement of the right frontal bone, concerning for a metastatic lesion. Intracra nial lesions are stable or unchanged since the previous comparison CT from September 2018, POS: [facility]
== END 2018-12-06 10:58 | disposition home or self-care (01) ==
LOC: MRI 10:57
PROVIDERS: ATTEND Internal Medicine Hematology & Oncology
DX: C50.212 Malignant neoplasm of upper-inner quadrant of left female breast (principal); C79.51 Secondary malignant neoplasm of bone; E83.52 Hypercalcemia; R93.0 Abnormal findings on diagnostic imaging of skull and head, not elsewhere classified
CPT/HCPCS: 70553; 87070; 87205

== ENCOUNTER 2019-02-06 10:44 | Outpatient (CLI) | payer MEDICARE ==
[~2019-02-06 10:44] MED LIST changes: +Gadobenate Dimeglumine 529 MG/1 ML (20ML VIAL) ONE; -ISOVUE-370 76%-LOCM 1 ML ONE
--- NOTE | 2019-02-06 11:54 | MRI ---
MRI BRAIN WITH AND WITHOUT CONTRAST: DATE: 02/06/2019 HISTORY: 63-year-old female follow-up brain metastasis from breast cancer "malignant neoplasm of upper inner q uadrant of left female breast" COMPARISON: MRI of 12/06/2018 TECHNIQUE: Multiplanar, multisequence MRI of the brain obtained pre and post IV injection of gadolinium based co ntrast agent. FINDINGS: The ventricles are normal in size and configuration. There is no midline shift or any other evidence of mass effect. There is no extra-axial fluid collection. There is no recent hemorrhage or restricted diffusion. Round 0.6 x 0.7 x 0.8 cm ring-enhancing lesion in the left basal ganglia has no t changed in size, but its enhancement is less intense than on the prior MRI. This difference in the degree of enhancement may or may not be due to differences in timing of each scan. At the left parietal hagan-white junction, punctate 2 mm intra-axial enhancing focus is again noted. T his also appears slightly less intensely enhancing and may be minimally smaller. There is an apparently new punctate 2 mm right parietal enhancing intra-axial focus at hagan-white yas ction. At left paramedian cerebral cortex slightly superior to the cingulate gyrus, there is a tiny 0.5 cm f ocus of hyperintense signal seen on FLAIR (image 20 of 27, series 2). There is no associated enhancement. This may correspond to the punctate focus of high density on the CT of 09/07/2018. Small 0 .8 x 0.4 cm focus of enhancement in right frontal bone is T1 hyperintense on precontrast scan. Uncertain whether this is small focal bone metastasis or hemangioma of bone (venous malformations of bone) Large right mastoid effusion is again noted.. IMPRESSION: 1) ring-enhancing lesion in the left basal ganglia consistent with metastasis is unchanged in size, b ut enhancement is less intense. 2) punctate 2 mm enhancing lesion in left parietal hagan-white junction also enhances less intensely t hall before. 3) contralateral punctate 2 mm enhancing lesion in right parietal hagan-white junction. 4) tiny left parasagittal frontal cortical signal abnormality without enhancement. Uncertain etiology . 5) small focal right frontal bone lesion: Hemangioma of bone versus bone metastasis. 6) no intracranial mass effect. No acute findings.
== END 2019-02-06 10:45 | disposition home or self-care (01) ==
LOC: MRI 10:44 → ULT 10:45
PROVIDERS: ATTEND Radiology Radiation Oncology
DX: C50.212 Malignant neoplasm of upper-inner quadrant of left female breast (principal); C79.31 Secondary malignant neoplasm of brain; G93.9 Disorder of brain, unspecified; I08.8 Other rheumatic multiple valve diseases; M89.9 Disorder of bone, unspecified; Z79.899 Other long term (current) drug therapy
CPT/HCPCS: 70553; 93306; A9577

== ENCOUNTER 2019-02-27 12:24 | Outpatient (CLI) | payer MEDICARE ==
--- NOTE | 2019-02-27 15:54 | PET ---
Exam: PET CT skull to mid thigh COMPARISON: 11/14/[address] HISTORY: Malignant neoplasm of upper inner quadrant of left breast. TECHNIQUE: A PET/CT was performed from the skull to the mid thigh after administration of 13 millicur ies of F-18 FDG. Evaluation was performed on a [employer] workstation. FINDINGS: NECK: No areas of hypermetabolic activity CHEST: There has been interval decreased metabolic activity involving the previously described foci o f subcutaneous density of the right shoulder and right posterior chest wall. ABDOMEN/PELVIS: No areas of hypermetabolic activity SKELETON: Numerous hypermetabolic foci of the imaged osseous structures are present, with a hypermeta bolic focus at the left aspect of the manubrium, SUV maximum of 6.7, new from prior exam, numerous abnormal hypermetabolic foci involving vertebra of the cervical, thoracic, and lumbar spine with SUV maximum of approximately 3.5 at the T8 level. Overall, there has been interval reduction of hypermetabolic activity of the multiple osseous spinal lesions. A new hypermetabolic osseous lesion a t the posterior left ilium demonstrates SUV maximum of approximately 4.5. Mild increased metabolic activity is present involving posterolateral left seventh rib and there is activity overlying multipl e bilateral lower ribs, some which may relate to misregistration, difficult to further delineate. IMPRESSION: New hypermetabolic osseous metastatic lesion of the left aspect of the sternal manubrium, and within the posterior left ilium. Redemonstration of multiple osseous spinal lesions throughout the cervical, thoracic and lumbar spine , with reduced hypermetabolic activity. Interval decrease of prior hypermetabolic activity of the subjacent tissues of the right chest. Transcribed Date/Time: 02/27/2019 4:27 PM
== END 2019-02-27 12:25 | disposition home or self-care (01) ==
LOC: PET 12:24
PROVIDERS: ATTEND Internal Medicine Hematology & Oncology
DX: C50.212 Malignant neoplasm of upper-inner quadrant of left female breast (principal); C79.51 Secondary malignant neoplasm of bone; C78.7 Secondary malignant neoplasm of liver and intrahepatic bile duct; C79.31 Secondary malignant neoplasm of brain
CPT/HCPCS: 78815; A9552

== ENCOUNTER 2019-05-01 12:18 | Outpatient (CLI) | payer MEDICARE ==
--- NOTE | 2019-05-01 13:44 | PET ---
PET CT SKULL TO MID THIGH: COMPARISON: 02/27/[address] HISTORY: Malignant neoplasm of upper inner quadrant of left breast. TECHNIQUE: A PET/CT was performed from the skull to the mid thigh after administration of 11.02 millicuries of F -18 FDG. Evaluation was performed on a [employer] workstation. FINDINGS: NECK: No areas of hypermetabolic activity. CHEST: No areas of hypermetabolic activity. ABDOMEN/PELVIS: Superimposed upon generalized heterogeneous activity of the liver, there is a hypermetabolic focus an teriorly, involving left hepatic lobe, with maximum SUV of approximately 4.6. A discrete hepatic parenchymal lesion by noncontrast attenuation correction CT imaging is difficult to confirm. SKELETON: There has been interval increase in number with regard to multiple, diffuse hypermetabolic lesions of the visualized osseous structures, with diffuse involvement of the spine from the lower cervical spine to the level of the sacrum, with maximum SUV within the lower cervical spine, approximate C7 le aleisha of 6.7, maximum SUV within the mid thoracic spine, approximately T8 level, of approximately 12.8, maximum SUV within the mid lumbar spine approximate L3 level of 9.7, and maximum SUV within the sacrum, posteriorly at the S1 level of 3.0. Redemonstration of hypermetabolic lesion of the left aspect of the sternal manubrium, with maximum SUV of approximately 5.9. Hypermetabolic lesion with ap proximate SUV maximum of 8 involves the posterior aspect of the left iliac bone. This is an interval increase. There has been interval decrease of metabolic activity involving posterior left 7t h rib. IMPRESSION: 1. Interval progression of diffuse osseous metastatic disease, as detailed above. 2. Hypermetabolic focus of the left hepatic lobe which has developed from prior exam. This is diffic ult to delineate morphologically, on the basis of the noncontrast, attenuation correction CT portion of the exam. This could be further evaluated with hepatic mass protocol CT of abdomen, as cli nically indicated. Transcribed Date/Time: 05/01/2019 2:17 PM
== END 2019-05-01 12:19 | disposition home or self-care (01) ==
LOC: ULT 12:18
PROVIDERS: ATTEND Internal Medicine Hematology & Oncology
DX: Z51.11 Encounter for antineoplastic chemotherapy (principal); C50.212 Malignant neoplasm of upper-inner quadrant of left female breast; C79.51 Secondary malignant neoplasm of bone; E83.52 Hypercalcemia; C22.9 Malignant neoplasm of liver, not specified as primary or secondary; Z79.899 Other long term (current) drug therapy
CPT/HCPCS: 78815; 93306; A9552

== ENCOUNTER 2019-05-24 10:10 | Outpatient (CLI) | payer MEDICARE ==
--- NOTE | 2019-05-24 11:28 | MRI ---
MRI BRAIN WITH AND WITHOUT CONTRAST: HISTORY: Metastatic breast cancer. COMPARISON: 02/06/2019 12/06/2018 FINDINGS: Gradient echo sequence: No hemorrhage Calvarium: Appropriate T1 marrow signal intensity Midline brain parenchyma: Unremarkable Cerebrum:Redemonstration of a T2 and FLAIR hyperintensity along the medial left frontal cortex, paraf alcine in location. This lesion currently measures 0.5 cm in the anterior-posterior dimension. There is a T2 and FLAIR hyperintensity along the anterior medial left lentiform nucleus measuring 0.5 cm. No associated enhancement or restricted diffusion. Ventricles: No evidence of hydrocephalus. Sinuses and mastoid air cells: Mild mucosal thickening of the paranasal sinuses. Partial opacificatio n of bilateral mastoid air cells. Diffusion: Central arterial flow is maintained. Absent restricted diffusion. Postcontrast images:Redemonstration of multiple punctate cortical and subcortical white matter areas of enhancement. These nodular enhancing lesions are approximately 1 to 2 mm size. The number of lesions has significantly increased when compared to the previous exam. There also appears to be pach ymeningeal enhancement. The possibility of metastases to the dura cannot be excluded. Decreased enhancement involving a lesion previously noted along the anterior limb of the left internal capsule. IMPRESSION: 1. Overall increase in the number of nodular enhancing lesions involving the brain parenchyma. There is also evidence of significant enhancement of the pachymeninges suggesting possible dural involvement. Lumbar puncture for cerebrospinal fluid acquisition can be formed. 2. Interval decreased enhancement involving a lesion along the anterior limb the left internal capsul e. Transcribed Date/Time: 05/24/2019 11:59 AM
== END 2019-05-24 10:11 | disposition home or self-care (01) ==
LOC: MRI 10:10
PROVIDERS: ATTEND Internal Medicine Hematology & Oncology
DX: C50.212 Malignant neoplasm of upper-inner quadrant of left female breast (principal); C79.31 Secondary malignant neoplasm of brain; G93.9 Disorder of brain, unspecified
CPT/HCPCS: 70553

== ENCOUNTER 2019-06-05 08:42 | Day surgery (SDC) | payer MEDICARE ==
[2019-06-04 14:36] VITALS: BMI 25.3
--- NOTE | 2019-06-05 10:48 | RAD ---
EXAM: XR Lumbar Punct Only W/Fluoro PROVIDED CLINICAL HISTORY: Metastatic left breast neoplasm. Abnormal enhancement of the packing meninges on recent MRI brain sug gesting dural involvement. Lumbar puncture for obtaining cerebrospinal fluid was recommended. COMPARISON: None Fluoroscopy: Total time is 0.3 minutes with total dose of 46.8 microGy meter squared TECHNIQUE: The procedure including the risks and complications were explained to the patient, and informed conse nt was obtained. The patient was placed on the fluoroscopy table in the prone position. An area overlying the L5-S1 interspace was marked, and the area was meticulously prepped and draped in usual sterile fashion. Skin and subcutaneous tissues were infiltrated with buffered 1% lidocaine for local anesthesia. A 22-gauge spinal needle was advanced into the thecal sac utilizing fluoroscopic gu idance. The inner stylette was removed with a return of clear cerebral spinal fluid. Approximately 6 mL of clear cerebral spinal fluid was collected. The inner stylette was replaced, and the needle wa s removed. Hemostasis was achieved with direct pressure, and a dry sterile dressing was placed. Patient tolerated the procedure well and without immediate complication. [facility] for further monitoring prior to discharge. IMPRESSION: 1. Technically successful fluoroscopic guided lumbar puncture. Approximately 6 mL of clear cerebral s néstor fluid was collected and sent for cytology. 2. Multilevel degenerative changes in the spine with right convex curvature of the lumbar spine. 3. Heterogeneous sclerotic appearance of the vertebral bodies likely related to metastatic disease. T here is mild height loss involving the L3 vertebral body which could be related to pathologic fracture. Height loss was noted involving this vertebral body on CT abdomen on 05/24/2018.
== END 2019-06-05 11:25 | disposition home or self-care (01) ==
LOC: RAD 08:42
PROVIDERS: ATTEND Internal Medicine Hematology & Oncology
PROC: 009U3ZX Drainage of Spinal Canal, Percutaneous Approach, Diagnostic (ICD-10-PCS; principal; 2019-06-05)
PROC: B01B1ZZ Fluoroscopy of Spinal Cord using Low Osmolar Contrast (ICD-10-PCS; 2019-06-05)
DX: C50.912 Malignant neoplasm of unspecified site of left female breast (principal); C79.51 Secondary malignant neoplasm of bone; C79.31 Secondary malignant neoplasm of brain; C78.7 Secondary malignant neoplasm of liver and intrahepatic bile duct; I10 Essential (primary) hypertension; M19.90 Unspecified osteoarthritis, unspecified site; E11.9 Type 2 diabetes mellitus without complications; Z17.0 Estrogen receptor positive status [ER+]; Z79.811 Long term (current) use of aromatase inhibitors; Z79.899 Other long term (current) drug therapy
CPT/HCPCS: 62270; 88112

== ENCOUNTER 2019-07-03 13:31 | Outpatient (CLI) | payer MEDICARE ==
--- NOTE | 2019-07-03 13:35 | PET ---
PET CT: HISTORY: A 64-year-old female with breast cancer with liver, bone and brain mets. Exam requested for restaging for last chemotherapy on 03/22/2019. COMPARISON: PET CT dated 05/01/2019. TECHNIQUE: PET scan with CT attenuation correction was performed from the base of the brain through the proximal thighs following the intravenous administration of 11 millicuries of 18-fluorodeoxyglucose in the ri ght wrist. FINDINGS: Multiple hypermetabolic osseous lesions noted on the previous study are redemonstrated with decreased intensity of uptake. The maximum SUV in the most hypermetabolic lesion involving the T8 vertebra has reduced from 13 on 05/01/2019 to 10.6 on the current exam. No new osseous lesions are seen. No hypermetabolic lymph nodes are noted in the neck, chest, axillae, abdomen or pelvis. No hypermetab olic pulmonary nodules or liver or adrenal lesions are seen. The previously noted hypermetabolic lesion in the left lobe of the liver has resolved in the interim. There is physiologic activity in the GI and tracts. CT scan used for attenuation correction demonstrates no evidence of pleural effusions or ascites. IMPRESSION: Partial response to therapy with interval improvement since 05/01/2019. POS: [facility]
== END 2019-07-03 13:32 | disposition home or self-care (01) ==
LOC: PET 13:31
PROVIDERS: ATTEND Internal Medicine Hematology & Oncology
DX: C50.212 Malignant neoplasm of upper-inner quadrant of left female breast (principal); C22.9 Malignant neoplasm of liver, not specified as primary or secondary; C79.51 Secondary malignant neoplasm of bone; C79.31 Secondary malignant neoplasm of brain
CPT/HCPCS: 70553; 78815; A9552

== ENCOUNTER 2019-08-16 11:04 | Outpatient (CLI) | payer MEDICARE ==
--- NOTE | 2019-08-16 13:11 | MRI ---
MRI BRAIN WITH AND WITHOUT CONTRAST: DATE: 08/16/2019 HISTORY: C5 0.212 malignant neoplasm of upper inner quadrant of the left female breast. E83.52 hypercalcemia C 79.51 secondary malignant neoplasm of bone Brain metastases. 64-year-old female. COMPARISON: 07/03/2019 TECHNIQUE: Multiplanar, multisequence MRI of the brain performed pre- and post-IV injection of gadolinium based contrast agent. FINDINGS: A very large number of tiny, on the order of 2 mm in size each, enhancing punctate foci throughout th e bilateral cerebellar hemispheres and bilateral frontal, parietal, and occipital lobes. There is a greater density in the number of such tiny lesions in the cerebellum compared to the supratentorial b rain. There are also several in the basal ganglia bilaterally. Because these appear to be at the superficial cortex, there is a small possibility that these could represent leptomeningeal metastases rather than hematogenous metastases. Even the punctate nodules in the basal ganglia could be following the Virchow-Cody perivascular spaces. These are associated with surrounding tiny foci of i ntra-axial T2 hyperintensity. No restricted diffusion, obstructive hydrocephalus, mass effect or midline shift, recent or remote intra-axial hemorrhage, extra-axial fluid collection. There has been no major interval change overall. IMPRESSION: 1) a large number of punctate, tiny metastatic nodules throughout the posterior fossa and to a lesser degree in the supratentorial brain. 2) no significant interval change.
== END 2019-08-16 11:05 | disposition home or self-care (01) ==
LOC: MRI 11:04
PROVIDERS: ATTEND Internal Medicine Hematology & Oncology
DX: C79.31 Secondary malignant neoplasm of brain (principal); C79.51 Secondary malignant neoplasm of bone; C50.212 Malignant neoplasm of upper-inner quadrant of left female breast; E83.52 Hypercalcemia; G93.89 Other specified disorders of brain
CPT/HCPCS: 70553

== ENCOUNTER 2019-08-29 12:56 | Outpatient (CLI) | payer MEDICARE | END 2019-08-29 12:57 | disposition home or self-care (01) | LOC: ULT 12:56 | PROVIDERS: ATTEND Internal Medicine Hematology & Oncology | DX: Z51.11 Encounter for antineoplastic chemotherapy (principal); C50.212 Malignant neoplasm of upper-inner quadrant of left female breast; I08.1 Rheumatic disorders of both mitral and tricuspid valves; Z79.899 Other long term (current) drug therapy | CPT/HCPCS: 93306 ==

== ENCOUNTER 2019-09-27 10:31 | Outpatient (CLI) | payer MEDICARE ==
--- NOTE | 2019-09-27 14:04 | PET ---
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 Comparison: PET/CT July 03, 2019 Findings: PET/CT was performed after the intravenous administration 16.6 mCi F-18 FDG. There is degenerative uptake within the sternoclavicular joints. Lytic and sclerotic foci throughout the spine. Chronic pathologic fracture of S1. The FDG avidity within the left T8 vertebral body has SUV max 6.8, previously 10.6. Mild increased FD G avidity within the sternum with SUV max 3.9, previously 3.1. There is also focal area of increased FDG avidity within the T10 vertebral body with SUV max 4.6, previously 5.7. No new focal ar ea of osseous radiotracer uptake. No abnormal solid organ uptake within the abdomen or pelvis. No abnormal lymphatic uptake. L3 inferior endplate metastatic focus had SUV max of 7.4, now 3.7. No suspicious pulmonary nodule. Calcified uterine fibroids. No dilated loops of large or small bowel. No hydronephrosis. Impression: Continued partial response to therapy with improvement since July 2019. The very slig ht increased FDG avidity within the right sternal metastatic focus may be sequelae of underlying reparative response as the other metastatic osseous foci have significant decreased FDG avidity. Transcribed Date/Time: 09/27/2019 2:19 PM
--- NOTE | 2019-09-27 14:37 | MRI ---
MRI BRAIN WITH AND WITHOUT CONTRAST: DATE: 09/27/19 HISTORY: 64-year-old female. 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 C79.51 secondary malignant neoplasm of bone. Brain metastases. Follow-up. COMPARISON: 08/16/19. TECHNIQUE: Multiple sequences obtained in axial, sagittal, and coronal planes; pre and post IV injection of gado linium-based contrast agent: 10 mL Multihance. FINDINGS: Very large number of tiny enhancing punctate foci throughout the bilateral cerebellar hemispheres, an d bilateral frontal, parietal and occipital lobes, have not significantly changed. There are also sev eral in the basal ganglia bilaterally. No mass effect, midline shift, obstructive hydrocephalus, remote or recent hemorrhage, extra-axial fl uid collection, or restricted diffusion. No interval change overall. IMPRESSION: 1. Large number of tiny metastatic nodules throughout the brain, both in the posterior fossa and supratentorially. 2. No significant interval change. VIANNEY Yao POS: NICOLE
== END 2019-09-27 10:32 | disposition home or self-care (01) ==
LOC: PET 10:31
PROVIDERS: ATTEND Internal Medicine Hematology & Oncology
DX: C50.212 Malignant neoplasm of upper-inner quadrant of left female breast (principal); C79.51 Secondary malignant neoplasm of bone; C78.7 Secondary malignant neoplasm of liver and intrahepatic bile duct; C79.31 Secondary malignant neoplasm of brain
CPT/HCPCS: 70553; 78815; A9552

== ENCOUNTER 2019-12-03 13:08 | Outpatient (CLI) | payer MEDICARE ==
[~2019-12-03 13:08] MED LIST changes: -Gadobenate Dimeglumine 529 MG/1 ML (20ML VIAL) ONE; +Magnevist 469MG/ML 20 ML VIAL ONE
--- NOTE | 2019-12-03 15:09 | MRI ---
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 COMPARISON: 09/27/2019 TECHNIQUE: Multiplanar, multisequence MRI of the brain performed pre- and post-IV injection of gadolinium based contrast agent. FINDINGS: Large number of tiny, mostly millimeters sized enhancing nodules throughout the bilateral cerebellar hemispheres. The largest in the posterior fossa is an approximately 8 x 4 x 4 mm lesion abutting the posterior lateral extra-axial space most of the others are on the order of 2 and 3 mm size. Some involve the cerebellar vermis. Numerous 1's involving cerebellar hemispheres. There are also numerous tiny enhancing similar lesions in the supratentorial brain in the bilateral c erebral hemispheres. Many of these are superficially located in the cortex or lucy. Many are in the bilateral basal ganglia and caudate nuclei. It is questioned whether the superficial ones could be al nara the leptomeninges, and the deeper ones could be in Virchow-Cody perivascular spaces rather than being intra-axial. No dural venous sinus thrombosis. No obstructive hydrocephalus, mass effect, midline shift, restricte d diffusion, recent intra-axial hemorrhage, or extra-axial fluid collection. Many of these metastatic lesions are associated with very small amounts of adjacent edema. There has been no interval change overall. IMPRESSION: 1. No significant interval change overall detected in the large number of tiny metastatic deposits th roughout the posterior fossa and supratentorial compartment. 2. There is a possibility that many or all of these could represent leptomeningeal metastatic deposit s.
== END 2019-12-03 13:09 | disposition home or self-care (01) ==
LOC: MRI 13:08
PROVIDERS: ATTEND Internal Medicine Hematology & Oncology
DX: C50.212 Malignant neoplasm of upper-inner quadrant of left female breast (principal); C79.51 Secondary malignant neoplasm of bone; E83.52 Hypercalcemia
CPT/HCPCS: 70553; A9579; J1642

== ENCOUNTER 2019-12-11 12:19 | Outpatient (CLI) | payer MEDICARE | END 2019-12-11 12:20 | disposition home or self-care (01) | LOC: ULT 12:19 | PROVIDERS: ATTEND Internal Medicine Hematology & Oncology | DX: Z51.11 Encounter for antineoplastic chemotherapy (principal); C50.212 Malignant neoplasm of upper-inner quadrant of left female breast; I08.8 Other rheumatic multiple valve diseases; Z79.899 Other long term (current) drug therapy | CPT/HCPCS: 93306 ==

== ENCOUNTER 2020-01-11 09:19 | Outpatient (CLI) | payer MEDICARE ==
--- NOTE | 2020-01-11 12:25 | PET ---
Radionucleotide PET scan with CT attenuation correction HISTORY: Malignant neoplasm of upper inner quadrant left breast. Metastatic disease. Restaging. COMPARISON: 09/27/2019. FINDINGS: Physiologic uptake of radiotracer throughout the enteric system and along each urinary trac t. Increased activity associated with bilateral posterior cervical lymph nodes again demonstrated: Right max SUV 3.8 (previously 4.1) Left max SUV 4.3 (previously 4.3) Bilateral supraclavicular lymph nodes: Right max SUV 6.5 (previously 14.9) Left max SUV 5.6 (previously 8.7) Heterogeneous uptake is noted at the left sternoclavicular joint and associated with the bilateral po sterior costovertebral junctions at the lower cervical and upper thoracic spine, in a pattern and distribution suggestive to be inflammatory/reactive rather than neoplastic. Hypermetabolic bone metastases: Location, max SUV, (previous max SUV) T3 right transverse process, 4.0 (4.8) T6 posterior body, 4.9 (previously non-hypermetabolic) T8 posterior body, 5.8 (6.8) T10 posterior body, 6.4 (4.6) T11 left body, 6.8 (4.3) L4 superior body, 3.9 (4.4) Sternum, posterior margin, 6.2 (4.2) Nondiagnostic CT attenuation correction images again show calcified fibroid disease of the uterus. IMPRESSION : Mixed response, in that the supraclavicular hypermetabolic adenopathy has improved significantly and some of the osseous lesions have improved slightly, but a new lesion has developed at the T6 vertebral body.
== END 2020-01-11 09:20 | disposition home or self-care (01) ==
LOC: PET 09:19
PROVIDERS: ATTEND Internal Medicine Hematology & Oncology
DX: C50.212 Malignant neoplasm of upper-inner quadrant of left female breast (principal); C79.51 Secondary malignant neoplasm of bone; C22.9 Malignant neoplasm of liver, not specified as primary or secondary; R59.0 Localized enlarged lymph nodes; M89.9 Disorder of bone, unspecified
CPT/HCPCS: 78815; A9552

== ENCOUNTER 2020-04-24 09:19 | Outpatient (CLI) | payer MEDICARE ==
--- NOTE | 2020-04-24 12:05 | PET ---
Exam: PET scan with CT attenuation correction COMPARISON: 01/11/2020, 09/27/2019 HISTORY: Metastatic breast cancer. Evaluate for response to treatment. TECHNIQUE: PET scan with CT attenuation correction was performed from the base of the brain to the pr oximal thighs following the administration of 11.2 mCi of [id number]. FINDINGS: Head and neck: Redemonstration of essentially symmetric hypermetabolic activity in the lower neck and supraclavicular region. This uptake is not present in July 2019 but is present in September and December 2019. CT used for attenuation correction demonstrates fat attenuation without discrete lymphaden opathy. Given that the overall uptake is symmetric, FDG avidity in brown fat is favored despite the overall markedly FDG avidity with significant increase SUV (14.7 in the left cervical radicular regio n). Chest: Increased FDG avidity involving right and left subpectoral lymph nodes. Right subpectoral lymp h node has a maximum SUV of 4.3. Left subpectoral lymph node has a maximum SUV of 3.8. No abnormal FDG localization in the lungs Abdomen and pelvis: No abnormal FDG localization. Osseous structures: Redemonstration of multifocal osseous metastases. FDG avidity involving the left and right second ribs with a maximum SUV of 7.6 and 7.3 respectively. FDG avidity involving the T6 vertebral body. FDG avidity involving the T8 vertebral body with a maximum SUV of 5.7. FDG avidity in volving the T10 vertebral body and adjacent rib with a maximum SUV of 6.2. Increased FDG avidity at L3 with a maximum SUV of 4.9. Increased FDG localization at L4 with a maximum SUV of 4.7. There is al so FDG avidity in the sternum. CT used for attenuation correction demonstrates diffuse sclerosis suggesting changes from previous tr eatment. IMPRESSION: Findings suggesting progression of disease. There is redemonstration of multifocal osseous metastases . There appears to be increased FDG localization involving multiple ribs, vertebra, and the sternum. CT used for attenuation correction does demonstrate diffuse sclerosis suggesting evidence of previous treatment. Transcribed Date/Time: 04/24/2020 12:13 PM
== END 2020-04-24 09:20 | disposition home or self-care (01) ==
LOC: PET 09:19
PROVIDERS: ATTEND Internal Medicine Hematology & Oncology
DX: C50.919 Malignant neoplasm of unspecified site of unspecified female breast (principal); C79.51 Secondary malignant neoplasm of bone
CPT/HCPCS: 78815; A9552

== ENCOUNTER 2020-06-10 08:24 | Outpatient (CLI) | payer MEDICARE ==
--- NOTE | 2020-06-10 10:04 | MRI ---
MRI BRAIN WITH AND WITHOUT CONTRAST: DATE: 06/10/2020 HISTORY: 64-year-old female with neoplasm of upper inner quadrant of left female breast with central nervous s ystem and skeletal metastasis. Follow-up. Findings were discussed by telephone with nurse practitioner Corinne Cantu at 9:56 AM 06/10/2020 COMPARISON: 03/11/2020 TECHNIQUE: Multiplanar, multisequence MRI of the brain performed pre- and post-IV injection of gadolinium based contrast agent. FINDINGS: Again noted is the very large number of small enhancing metastatic lesions throughout the supratentor ial brain and throughout the posterior fossa. Many or most appear to be within sulci and superficial cortex. These have all increased in size. For example, there was a metastatic lesion at the left posterior lateral cerebellar hemisphere abutti ng the dura that previously measured approximately 0.7 x 0.5 x 0.6 cm. It currently measures 11 x 7 x 7 mm. As another example, a previously 0.5 x 0.3 cm enhancing nodule vermis at the level of the fourth vent ricle previously measured 0.5 x 0.3 cm. It currently measures 0.9 x 0.6 x 0.6 cm. In the left paramedian frontal lobe, just superior to the level of the lateral ventricles, a previous ly 0.6 x 0.3 x 0.5 cm enhancing nodule currently measures 0.8 x 0.5 x 0.7 cm. There has been dramatic interval worsening of T2 and FLAIR hyperintensities patchy intra-axial signal abnormalities involving subcortical, deep, and periventricular white matter, and throughout the bilateral cerebellar hemispheres (worse on the left than right) and cerebellar vermis The right cerebral hemisphere is asymmetrically worse than the left, and the left cerebellar hemisphe re is asymmetrically worse than the right, regarding this edema. Ventricles are normal in size and configuration. No mass effect or midline shift. No extra-axial flui d collection. IMPRESSION: 1) interval worsening of intracranial metastasis: 2) large number of brain metastases, both throughout the supratentorial regions and posterior fossa. There has been interval increase in size of each metastasis (at least some, and possibly all, are leptomeningeal spread of metastatic disease). 3.) dramatic interval worsening of vasogenic edema associated with these brain metastases, throughout the cerebrum and cerebellum
[2020-06-10] MEDS ORDERED: Magnevist 469MG/ML 20 ML VIAL ONE (11:01)
== END 2020-06-10 08:25 | disposition home or self-care (01) ==
LOC: MRI 08:24
PROVIDERS: ATTEND Internal Medicine Hematology & Oncology
DX: C50.212 Malignant neoplasm of upper-inner quadrant of left female breast (principal); C79.51 Secondary malignant neoplasm of bone; C79.31 Secondary malignant neoplasm of brain; C71.9 Malignant neoplasm of brain, unspecified
CPT/HCPCS: 70553; 82565; A9579